=== PATIENT | male | born 1995 | race Caucasian/White ===

== ENCOUNTER 2018-03-04 10:34 | Emergency (ER) | payer MEDICAID | END 2018-03-04 12:39 | disposition home or self-care (01) | LOC: FTE 10:34 | DX: S62.336A Displaced fracture of neck of fifth metacarpal bone, right hand, initial encounter for closed fracture (principal); S01.01XA Laceration without foreign body of scalp, initial encounter; Y09 Assault by unspecified means; Y92.009 Unspecified place in unspecified non-institutional (private) residence as the place of occurrence of the external cause | CPT/HCPCS: 29125; 73130-RT; 99283-25 ==

== ENCOUNTER 2018-03-11 10:24 | Emergency (ER) | payer MEDICAID | END 2018-03-11 10:59 | disposition home or self-care (01) | LOC: E/R 10:24 | DX: Z48.02 Encounter for removal of sutures (principal) | CPT/HCPCS: 99281; Z7502 ==